=== PATIENT | female | born 1990 | race African-American/Black ===

== ENCOUNTER 2021-11-03 20:31 | Emergency (ER) | payer OTHER ==
[2021-11-03 20:46] VITALS: BP 119/80; PULSE 80; TEMP 97; BMI 34.9
[2021-11-03 22:57] LABS: EPI CELLS 5 /uL (0-25.1); HYALINE CASTS 0 /uL (0-3.1); PH,URINE 5.5 (5.0-8.0); URINE APPEARANCE CLOUDY; URINE BACTERIA >9,000 /uL (0-1359); URINE BILIRUBIN NEGATIVE (NEGATIVE); URINE COLOR DK YELLOW; URINE GLUCOSE (UA) 3+ (NEGATIVE); URINE KETONE NEGATIVE (NEGATIVE); URINE LEUK ESTERASE 1+ (NEGATIVE); URINE NITRITE POSITIVE (NEGATIVE); URINE PROTEIN 1+ (NEGATIVE); URINE RBC 164 /uL (0-23.9); URINE WBC 1046 /uL (0-25.8)
[2021-11-03 22:58] LABS: HCG,QUALITATIVE URINE Negative
== END 2021-11-04 02:33 | disposition home or self-care (01) ==
LOC: JER 20:31 → JERFT 20:31 → JER 11-04 02:33
DX: N30.00 Acute cystitis without hematuria (principal)
CPT/HCPCS: 81003; 84703; 87086; 87186; 99283-25